=== PATIENT | male | born 1930 | race Caucasian/White ===

== ENCOUNTER 2018-02-01 08:57 | Inpatient (IN) | payer OTHER, MEDICARE ==
[~2018-02-01] VITALS: Ht 180.3 cm; Wt 69.5 kg
[2018-02-01 09:20] LABS: ABSOLUTE BASOPHIL COUNT 0 /CUMM (0.0-0.2); ABSOLUTE EOSINOPHIL COUNT 0.3 /CUMM (0.0-0.7); ABSOLUTE GRANULOCYTE CT 5.2 /CUMM (1.4-6.5); ABSOLUTE LYMPH COUNT 0.8 /CUMM (1.2-3.4); ABSOLUTE MONOCYTE COUNT 0.7 /CUMM (0.10-0.60); BASOPHIL % 0.3 % (0.0-2.0); EOSINOPHIL % 3.7 % (0-5); HEMATOCRIT 39.2 % (42-52); MEAN CORPUSCULAR HGB 30.5 PG (27.0-31.0); MEAN CORPUSCULAR HGB CONC 32.3 G/DL (33.0-37.0); MEAN CORPUSCULAR VOLUME 94.4 FL (80.0-94.0); MEAN PLATELET VOLUME 7.4 FL (7.4-10.4); PLATELET COUNT 230 /CUMM (130-400); RBC DISTRIBUTION WIDTH 13.9 % (11.5-14.5); RED BLOOD CELL CT 4.16 /CUMM (4.70-6.10); WHITE BLOOD CELL COUNT 7.1 /CUMM (4.8-10.8)
--- NOTE | 2018-02-01 09:42 | ED AMS/SEIZURE/WEAK/DIZZY ---
History of Present Illness General Chief Complaint: Dizziness Stated Complaint: DIZZNESS Source: patient, family, old records, EMS Exam Limitations: poor historian Vital Signs & Intake/Output Vital Signs & Intake/Output Vital Signs Date Time Temp Pulse Resp B/P B/P Pulse O2 O2 Flow FiO2 Mean Ox Delivery Rate 02/01 1249 65 18 163/83 95 Room Air 02/01 1110 98.6 54 18 159/70 98 Room Air 02/01 1051 97.0 51 18 159/70 97 Room Air 02/01 0950 98 Room Air 02/01 0906 96.8 63 18 187/79 98 Room Air Allergies Coded Allergies: No Known Allergies (02/01/18) Reconcile Medications Allopurinol 300 MG TABLET 1 TAB PO DAILY PRN GOUT (Reported) Brimonidine Tartrate/Timolol (Combigan Eye Drops) 0.2 %-0.5 % DROPS 1 DROP OPH BID EYE PROBLEMS (Reported) Clopidogrel Bisulfate (Clopidogrel) 75 MG TABLET 1 TAB PO DAILY BLOOD THINNER (Reported) [COVERSYL] 5 MG TAB 0.5 TAB PO DAILY HEART (Reported) Dorzolamide HCl/Timolol Maleat (Cosopt Eye Drops) 22.3 MG-6.8 MG/ML DROPS 1 GTT OPH BID GLAUCOMA (Reported) Perindopril Erbumine 4 MG TABLET 1 TAB PO DAILY PRN UNKNOWN (Reported) Travoprost (Travatan Z) 0.004 % DROPS 1 GTT OPH QPM GLAUCOMA (Reported) Triage Note: 87 YO MALE BIBA FROM HOME FOR C/O DIZZINESS. PT REPORTS DIZZINESS HAS BEEN GOING ON SINCE YESTERDAY. DENIES PAIN OTHER THEN CHROINC PAIN IN R KNEE (PTS R KNEE CAP WAS BLOWN OUT DURING WW2) PT ARRIVES A&O X3. DAUGHTER AT BEDSIDE, DAUGHTER REPORTS PT HAD AN EPISODE THIS AM WHERE HE WAS WALKING WITH HIS WALKER TO THE BATHROOM AND "HE JUST STOOD THERE AND DIDNT KNOW WHERE HE WAS" "HE WAS MARCHING IN PLACE BUT NOT WALKING ANYWHERE" BS FOR EMS WAS 126. Triage Nurses Notes Reviewed? yes Onset: yesterday Duration: day(s):, gone now Timing: recent history Injury Environment: home Severity: moderate, severe Modifying Factors: Improves With: rest. Worsens With: movement. HPI: 1 day prior to admission patient complained of episodes of dizziness. Prior to admission while attempting to walk with his walker to the bathroom and had extreme dizziness headache became confused unable to ambulate. In the emergency department the dizziness is improved without headache. He denies fever chills nausea vomiting diarrhea abdominal pain chest pain shortness of breath dysuria rash bleeding falls. Past History Travel History Traveled to [place] past 21 day No Medical History Any Pertinent Medical History? 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 No Review of Systems Review of Systems Constitutional: Reports: no symptoms. EENTM: Reports: no symptoms. Respiratory: Reports: no symptoms. Cardiovascular: Reports: no symptoms. GI: Reports: no symptoms. Genitourinary: Reports: no symptoms. Musculoskeletal: Reports: no symptoms. Skin: Reports: no symptoms. Neurological/Psychological: Reports: see HPI, cognitive dysfunction, headache, weakness. Hematologic/Endocrine: Reports: no symptoms. Immunologic/Allergic: Reports: no symptoms. All Other Systems: Reviewed and Negative Physical Exam Physical Exam General Appearance: well developed/nourished, alert, awake, comfortable, thin Head: atraumatic, normal appearance Eyes: Bilateral: normal appearance, PERRL, EOMI, other (nystagmus). Ears, Nose, Throat: normal pharynx, normal ENT inspection, hard of hearing with bilateral hearing aids Neck: normal inspection, supple, full range of motion, no midline tenderness Respiratory: normal breath sounds, chest non-tender, no respiratory distress, quiet respiration, lungs clear Cardiovascular: regular rate/rhythm, normal peripheral pulses, norml femoral pulses equa Peripheral Pulses: 4+ carotid (R), 4+ carotid (L) Gastrointestinal: normal bowel sounds, soft, non-tender, no organomegaly Back: normal inspection, normal range of motion, no vertebral tenderness Extremities: normal range of motion, no ligament instability Neurologic/Psych: no motor/sensory deficits, awake, alert, normal mood/affect, 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 Skin: intact, normal color, warm/dry Lymphatic: no anterior cervical nelida Core Measures ACS in differential dx? No CVA/TIA Diagnosis No Sepsis Present: No Sepsis Focused Exam Completed? No Progress Differential Diagnosis: benign positional vertigo, CVA/stroke, electrolyte imbalance, hypoxia, intracranial Hem., vertebrobasilar insuff Plan of Care: Orders Procedure Date/time Status CBC WITHOUT DIFFERENTIAL 02/02 0600 Active BASIC ELECTROLYTES PLUS BUN&CR 02/02 0600 Active Regular Diet 02/01 L Complete Regular Diet 02/01 D Active EKG 02/01 1500 Active PT Evaluate & Treat 02/01 1230 Active Saline Lock 02/01 1230 Active Pathway - chart 02/01 1230 Active House Staff 02/01 1230 Active CASE MANAGEMENT CONSULT 02/01 1230 Active Patient Data 02/01 1147 Active URINALYSIS 02/01 1121 Complete OXYGEN SETUP (GEN) 02/01 1051 Active Saline Lock 02/01 1051 Active Admit to inpatient 02/01 1051 Active Vital Signs 02/01 1051 Active Activity/Ambulation 02/01 1051 Active Code Status 02/01 1051 Active FingerStick- Glucose 02/01 0926 Active Intake & Output 02/01 0917 Active TROPONIN LEVEL 02/01 0912 Complete COMPREHENSIVE METABOLIC PANEL 02/01 0912 Complete CBC WITHOUT DIFFERENTIAL 02/01 0912 Complete EKG 02/01 0858 Active VTE Mechanical Prophylaxis 02/01 UNK Active Current Medications Sig/Kit Start time Last Medication Dose Stop Time Status Admin Enoxaparin Sodium 40 MG DAILY 02/02 1000 AC (Lovenox) Multivitamins 1 TAB DAILY 02/02 1000 AC (Theragran Vitamins) Acetaminophen 650 MG Q6PRN PRN 02/01 1230 AC (Tylenol) Laboratory Tests 02/01/18 1123: Urine Color YEL, Urine Clarity CLEAR, Urine pH 6.0, Ur Specific [place] 1.010, Urine Protein NEG, Urine Ketones NEG, Urine Nitrite NEG, Urine Bilirubin NEG, Urine Urobilinogen 0.2, Ur Leukocyte Esterase TRACE H, Ur Microscopic SEDIMENT EXAMINED, Urine RBC RARE, Urine WBC 1-3 H, Ur Epithelial Cells FEW, Urine Bacteria FEW H, Urine Hemoglobin NEG, Urine Glucose NEG 02/01/18 0910: Anion Gap 11, Estimated GFR > 60, BUN/Creatinine Ratio 22.9, Glucose 110 H, Calcium 9.1, Total Bilirubin 0.4, AST 16 L, ALT 23, Alkaline Phosphatase 45, Troponin I < 0.01, Total Protein 7.0, Albumin 3.8, Globulin 3.2, Albumin/ Globulin Ratio 1.2, CBC w Diff NO MAN DIFF REQ, RBC 4.16 L, MCV 94.4 H, MCH 30.5, MCHC 32.3 L, RDW 13.9, MPV 7.4, Gran % 74.0, Lymphocytes % 11.4 L, Monocytes % 10.6 H, Eosinophils % 3.7, Basophils % 0.3, Absolute Granulocytes 5.2, Absolute Lymphocytes 0.8 L, Absolute Monocytes 0.7 H, Absolute Eosinophils 0.3, Absolute Basophils 0 Diagnostic Imaging: Viewed by Me: CT Scan. Discussed w/RAD: CT Scan. Radiology Impression: No acute intracranial pathology. Probable old lacunar infarct right inferior basal ganglia. Small vessel ischemic disease. Initial ED EKG: rhythm (junctional rhythm), LBBB Rhythm Strip: normal sinus rhythm Comments: Unable to safely ambulate with walker and assist of 2. Departure Departure Time of Disposition: 1052 Disposition: STILL A PATIENT Condition: Stable Clinical Impression Primary Impression: Multifactorial gait disorder Secondary Impressions: Dizziness Departure Forms: Customer Survey General Discharge Information Admission Note Spoke With: Александр SPRINGER,Shona Documentation of Exam: Documentation of any treatments & extenuating circumstances including Concerns Regarding Discharge (functional status, medication knowledge or non-compliance, living conditions, etc.) that warrant an admission rather than observation: Medications for dizziness MRI physical therapy medication adjustment neurology evaluation ensure safety continuing care discharge planning
[2018-02-01] MEDS ORDERED: CLOPIDOGREL75 M1 PO (10:01)
[2018-02-01] MEDS ORDERED: ALLOPURINOL300 M1 PO (10:02)
[2018-02-01] MEDS ORDERED: [UNRECOGNIZED DRUG - OTHER] PO (10:02)
[2018-02-01] MEDS ORDERED: COSOPT EYE DROP10 ML OPH (10:03)
[2018-02-01] MEDS ORDERED: COVERSYL PO (10:03)
[2018-02-01] MEDS ORDERED: TRAVATAN Z5 ML OPH (10:04)
[2018-02-01] MEDS ORDERED: COMBIGAN EYE DRO5 ML OPH (10:04)
--- NOTE | 2018-02-01 10:15 | CT SCAN REPORT ---
EXAMINATION: CT HEAD WITHOUT CONTRAST CLINICAL INFORMATION: Dizziness and headaches COMPARISON: None TECHNIQUE: Contiguous axial imaging was performed from the skull base to vertex without intravenous administration of contrast. DLP: 624.7 mGy-cm FINDINGS: There is no evidence of acute intra-axial or extra-axial hemorrhage. No acute mass effect or midline shift. Prominence of the ventricles and sulci compatible with age related involutional changes. Focal hypodensity right inferior basal ganglia may represent age indeterminate lacunar infarct. No acute loss of ibarra-white differentiation. Mild periventricular white matter low-attenuation compatible with small vessel ischemic disease. The mastoid air cells and visualized portions of the paranasal sinuses are well aerated. IMPRESSION: No acute intracranial pathology. Probable old lacunar infarct right inferior basal ganglia. Small vessel ischemic disease.
--- NOTE | 2018-02-01 12:24 | History & Physical ---
Nae Tao 02/01/18 1224: General Information and HPI MD Statement: I have seen and personally examined MIGUEL CANCHOLA and documented this H& P. The patient is a 87 year old M who presented with a patient stated chief complaint of [dizziness]. Source of Information: patient, family Exam Limitations: no limitations History of Present Illness: Mr. Canchola is an 87 yo man with PMHx. significant for coronary artery disease, gout, glaucoma, hypertension, TIA about 5 years ago, vitamin B12 deficiency, TBI, brought in to emergency department by his daughter with a chief complaint of dizziness/confusion for [address] from [facility] he speak minimal Peruvian, most of the history obtained from his daughter was at bedside during the encounter. Per daughter she noticed that her father is confused today, he thought the table was his walker, he complained of dizziness, and he felt his head very heavy, no fall or loss of consciousness was reported. earlier today he thought he was walking while he was moving his feet in the same place, patient complained of excessive coldness of his left upper and lower extremities, he mentioned that he feels his arm and leg or freezing overnight and today in the morning, he reported that he didn't feel the plantar aspect of his left foot, with no weakness, numbness, loss of sensation other than the planter aspect of left foot reported. According to the daughter patient has been eating and drinking fine until today in the morning when he started to feel dizzy and he was confused. Patient denies any headache, chest pain, recent vision changes, shortness of breath, palpitation, ear pain, tinnitus, nausea, vomiting, and there is no change in his urinary or bowel habits. Of note: Patient uses a walker for ambulation since 5 years ago secondary to right knee injury at world war [place]. He lives with his daughter, he is dependent on his ADLs, IADLs Allergies/Medications Allergies: Coded Allergies: No Known Allergies (02/01/18) Home Med list Allopurinol 300 MG TABLET 1 TAB PO DAILY PRN GOUT (Reported) Brimonidine Tartrate/Timolol (Combigan Eye Drops) 0.2 %-0.5 % DROPS 1 DROP OPH BID EYE PROBLEMS (Reported) Clopidogrel Bisulfate (Clopidogrel) 75 MG TABLET 1 TAB PO DAILY BLOOD THINNER (Reported) Dorzolamide HCl/Timolol Maleat (Cosopt Eye Drops) 22.3 MG-6.8 MG/ML DROPS 1 GTT OPH BID GLAUCOMA (Reported) Perindopril Erbumine 4 MG TABLET 1 TAB PO DAILY PRN UNKNOWN (Reported) Travoprost (Travatan Z) 0.004 % DROPS 1 GTT OPH QPM GLAUCOMA (Reported) Compliance With Home Meds: GOOD Past History Travel History Traveled to [place] past 21 day No Medical History Neurological: TIA, TBI EENT: glaucoma Cardiovascular: CLOGGED ARTERY Respiratory: NONE Gastrointestinal: NONE Hepatic: NONE Renal: NONE Musculoskeletal: NONE Psychiatric: NONE Endocrine: NONE Blood Disorders: NONE Cancer(s): NONE 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 EENTM: Denies: ear discharge, ear pain, ear redness. Cardiovascular: Reports: no symptoms. Respiratory: Reports: no symptoms. GI: Reports: no symptoms. Genitourinary: Reports: no symptoms. Musculoskeletal: Reports: no symptoms, joint pain. Skin: Reports: no symptoms. Neurological/Psychological: Reports: see HPI, confusion. Hematologic/Endocrine: Reports: no symptoms. Immunologic/Allergic: Reports: no symptoms. All Other Systems: Reviewed and Negative Exam & Diagnostic Data Last 24 Hrs of Vital Signs/I&O Vital Signs Date Time Temp Pulse Resp B/P B/P Pulse O2 O2 Flow FiO2 Mean Ox Delivery Rate 02/01 1249 65 18 163/83 95 Room Air 02/01 1110 98.6 54 18 159/70 98 Room Air 02/01 1051 97.0 51 18 159/70 97 Room Air 02/01 0950 98 Room Air 02/01 0906 96.8 63 18 187/79 98 Room Air Intake & Output 02/01 1600 02/01 0800 02/01 0000 Intake Total 0 Output Total 420 Balance -420 Intake, Oral 0 Output, Urine 420 Patient 150 lb Weight Weight Reported by Patient Measurement Method Physical Exam General Appearance Alert, Cooperative, No Acute Distress Skin No Rashes, No Breakdown, No Significant Lesion Skin Temp/Moisture Exam: Warm/Dry Sepsis Skin Exam (color): Normal for Ethnicity HEENT Atraumatic, PERRLA, EOMI, Mucous Membr. moist/pink, No nystagmus appreciated Neck Supple, No JVD, No thryomegaly, +2 Carotid Pulse wo Bruit Lymphatic Axillary nl, Cervical nl Cardiovascular Regular Rate, Normal S1, Normal S2, No Murmurs Lungs Clear to Auscultation, Normal Air Movement Abdomen Normal Bowel Sounds, Soft, No Tenderness Neurological Normal Speech, Normal Tone, Sensation Intact, Cranial Nerves 3-12 NL, Stength at 5/5 on all extrimities except for right LE 3/5 2/2 knee injury Extremities No Clubbing, No Cyanosis, No Edema, Normal Pulses, No Tenderness/ Swelling Vascular Normal Pulses, Pulses Symmetrical Last 24 Hrs of Labs/Romero: Laboratory Tests 02/01/18 1123: Urine Color YEL, Urine Clarity CLEAR, Urine pH 6.0, Ur Specific [place] 1.010, Urine Protein NEG, Urine Ketones NEG, Urine Nitrite NEG, Urine Bilirubin NEG, Urine Urobilinogen 0.2, Ur Leukocyte Esterase TRACE H, Ur Microscopic SEDIMENT EXAMINED, Urine RBC RARE, Urine WBC 1-3 H, Ur Epithelial Cells FEW, Urine Bacteria FEW H, Urine Hemoglobin NEG, Urine Glucose NEG 02/01/18 0910: Anion Gap 11, Estimated GFR > 60, BUN/Creatinine Ratio 22.9, Glucose 110 H, Calcium 9.1, Total Bilirubin 0.4, AST 16 L, ALT 23, Alkaline Phosphatase 45, Troponin I < 0.01, Total Protein 7.0, Albumin 3.8, Globulin 3.2, Albumin/ Globulin Ratio 1.2, CBC w Diff NO MAN DIFF REQ, RBC 4.16 L, MCV 94.4 H, MCH 30.5, MCHC 32.3 L, RDW 13.9, MPV 7.4, Gran % 74.0, Lymphocytes % 11.4 L, Monocytes % 10.6 H, Eosinophils % 3.7, Basophils % 0.3, Absolute Granulocytes 5.2, Absolute Lymphocytes 0.8 L, Absolute Monocytes 0.7 H, Absolute Eosinophils 0.3, Absolute Basophils 0 Diagnostic Data EKG Results Sinus rhythm, LBBB, 1st degree AV block no acute ST/T-wave changes QTC 410 CXR Results IMPRESSION: No acute intracranial pathology. Probable old lacunar infarct right inferior basal ganglia. Small vessel ischemic disease. Other Results CT head: IMPRESSION: No acute intracranial pathology. Probable old lacunar infarct right inferior basal ganglia. Small vessel ischemic disease. Assessment/Plan Assessment: Mr. Canchola is an 87 yo man who is born with one kidney with PMHx. significant for coronary artery disease, gout, glaucoma, hypertension, TIA about 5 years ago , vitamin B12 deficiency, TBI, brought in to emergency department by his daughter with a chief complaint of dizziness/confusion for 1 day admitted to telemetry floor for intractable dizziness, confusion, to rule out TIA/stroke Vitals, examination, labs and imaging as above ABCD score: 2 (age >65 and BP>140/90 mmgh) #Assessment: * Dizziness: Could be related to new neurological event VS orthostatic hypotension * Confusion: Could be Related to mild cognitive impairment given his age VS dementia (given TBI history) but also serious etiology such as new onset TIA/ stroke needs to rule out * Coldness of left upper and lower extremities with intact pulse and normal neurologic exam * History of CAD currently on Plavix * History of TIA about 5 years ago with no residual deficits * Right knee injury/ dependent on a walker * History of vitamin B12 deficiency * Macrocytic anemia * History of gout/ Hypertension * History of glaucoma * Single kidney #Plan: * We'll admit the patient to telemetry floor for 24-hour monitoring to rule out any arrhythmia * He had a CAT scan at the emergency department which showed no acute intracranial pathology, possible old lacunar infarct in the right inferior basal ganglia. Small vessel ischemic disease. Will check head MRI * Will discuss the need for neurological evaluation with the attending and after the MRI result * Will order carotid ultrasound * Will hold on statin for now given his age, as statin had shown to increase risk of dementia in this age group, and it is not recommended to decrease ASCVD risk * We'll continue his home dose of Plavix * We'll discuss with attending the need for aspirin * Will check echocardiogram * We'll continue his eyedrops for glaucoma * Will hold LACIE inhibitor for today, resume from tomorrow if MRI is negative and remains stable * On examination patient didn't have any bilateral lower extremity swelling, sensation was intact on bilateral lower extremity, sensation in the plantar aspects of his feet was also intact, pulse was also appreciated in bilateral lower extremity, however I will order left lower extremity arterial Doppler to rule out any PVD as his left LE was noted to be cold * Check orthostat * PT evaluation * Will check vit B12 level * Would repeat one more set of EKG and troponin to rule him out for ACS even though he didn't complain of any chest pain DVT prophylaxis with SC Lovenox He is full code As Ranked By This Provider Problem List: 1. Dizziness 2. Multifactorial gait disorder Core Measures/Misc (07/19) Acute Coronary Syndrome ACS Diagnosis: No Congestive Heart Failure Congestive Heart Failure Diagnosis No Cerebrovascular Accident CVA/TIA Diagnosis: No VTE (View Protocol) VTE Risk Factors Age>40 No Mechanical VTE Prophylaxis d/t N/A MechProphylax Ordered No VTE Pharm Prophylaxis d/t NA PharmProphylax ordered Sepsis (View protocol) Sepsis Present: No Reji Gee 02/01/182047: Attending MD Review Statement Attending Statement Attending MD Statement: discuss w/resident/PA/DIRECTOR SHIP, agreed w/resident/PA/DIRECTOR SHIP, discussed with family, reviewed EMR data (avail), discussed with case mgmt Attending Assessment/Plan: 87 yo man with PMHx. significant for coronary artery disease, gout, glaucoma, hypertension, TIA about 5 years ago, vitamin B12 deficiency, TBI, brought in to emergency department by his daughter with a chief complaint of dizziness/ confusion for [address] head done shows-"No acute intracranial pathology.Probable old lacunar infarct right inferior basal ganglia. Small vessel ischemic disease." MRI brain showed no acute intracranial pathology and some volume loss. His confusion could be multifactorial. ? TIA vs Dementia vs encephalopathy- his Imaging studies do not support stroke. More likely dementia with some pscyhosis features is possible. Will see if his mental status improves. We have ordered some test -will f/u on that. We will send for lyme and vdrl as well. Will get PT /OT consult in am. d/w pts family at bedside the care plan.
[2018-02-01 14:27] VITALS: BP 142/60
--- NOTE | 2018-02-01 16:57 | MRI REPORT ---
EXAMINATION: MR BRAIN WITHOUT CONTRAST CLINICAL INFORMATION: 87-year-old man with dizziness and confusion. COMPARISON: head CT TECHNIQUE: MRI of the brain without contrast was obtained using routine sequences. FINDINGS: The ventricles and sulcal spaces are diffusely prominent due to chronic volume loss. No focal reduced diffusion is seen to suggest acute or subacute cerebral ischemia. No intracranial mass, intracerebral edema, intra-axial blood products, midline shift, or extra-axial collection is visualized. Normal arterial and venous vascular flow voids are present. There is mild mucosal thickening in the ethmoid air cells. IMPRESSION: No imaging evidence of acute cerebral ischemia or hemorrhage. Chronic volume loss.
--- NOTE | 2018-02-01 18:06 | ULTRASOUND REPORT ---
EXAMINATION: US DUPLEX CAROTID AND VERTEBRAL CLINICAL INFORMATION: Dizziness, unsteady gait. COMPARISON: CT brain 02/01/2018 and MRI brain 02/19/2018 TECHNIQUE: Real-time ultrasound and Doppler techniques (integrating B-mode 2D vascular images, Doppler spectral analysis and color flow Doppler imaging) were utilized to interrogate the extracranial carotid and vertebral arteries bilaterally. The degree of stenosis determined by criteria similar to NASCET. FINDINGS: There is soft atherosclerotic plaque bilateral proximal common carotid artery greater on the right. On the right peak systolic/end diastolic velocity distal CCA measures 113/22 cm/second. Peak systolic/end-diastolic velocity right proximal ICA measures 105/18 cm/second. There is no significant stenosis. On the left peak systolic/end diastolic velocity left distal CCA measures 97/17 cm/second. Peak systolic/end diastolic velocity left proximal IC measures 79/20 3 cm/second. There is no significant stenosis. Normal antegrade flow seen in both vertebral arteries. IMPRESSION: Soft atherosclerotic plaque seen in both carotid bulbs. No hemodynamically significant stenosis in either carotid artery. Normal antegrade flow seen in both vertebral arteries
--- NOTE | 2018-02-01 18:32 | RADIOLOGY REPORT ---
EXAMINATION: XR PORTABLE CHEST CLINICAL INFORMATION: Dizziness. COMPARISON: None TECHNIQUE: Portable frontal view of the chest was obtained. FINDINGS: Both lungs are well-expanded with increased fine interstitial markings likely chronic changes. No focal consolidation seen to suggest any new infiltrate. No pleural effusion noted. Heart size and pulmonary vascularity is normal. No gross bony abnormality seen. IMPRESSION: Increased interstitial markings suggestive of chronic changes. No acute cardio pulmonary process seen.
--- NOTE | 2018-02-01 19:32 | ULTRASOUND REPORT ---
EXAMINATION: US LOWER EXTREMITY ARTERIAL DOPPLER, BILATERAL CLINICAL INFORMATION: Cold extremity. Unsteady gait. COMPARISON: None TECHNIQUE: Sonographic imaging of major vessels of each lower extremity was performed using a linear 9 MHz transducer. Grayscale imaging, pulsed color Doppler imaging and spectral waveform analysis was performed. FINDINGS: RIGHT SIDE: Common femoral artery, triphasic waveform, peak velocity of 138 cm/sec. Profunda femoris artery, biphasic waveform, peak velocity of 107 cm/sec. Proximal SFA, triphasic waveform, peak velocity of 86 cm/sec. Mid SFA, triphasic waveform, peak velocity of 86 cm/sec. Distal SFA, triphasic waveform, peak velocity of 135 cm/sec. Atherosclerotic plaque produces mild luminal stenosis within the distal SFA. Popliteal artery, biphasic waveforms, peak velocity of 49 cm/sec, proximally and 54 cm/sec, distally. Proximal and mid posterior tibial artery, biphasic waveforms, peak velocity of 50 cm/sec and 78 cm/sec, respectively. Distal posterior tibial artery, triphasic waveform, peak velocity of 95 cm/sec. Proximal peroneal artery, biphasic waveform, peak velocity of 72 cm/sec. Mid peroneal artery, biphasic waveform, peak velocity of 79 cm/sec. The distal peroneal artery has a biphasic waveform, peak velocity of 69 cm/sec. Anterior tibial artery, biphasic waveform, peak velocities of 73, 88 and 66 cm/sec in the proximal, mid and distal leg, respectively. Dorsalis pedis artery, biphasic waveform, peak velocity of 40 cm/sec. LEFT SIDE: Common femoral artery, triphasic waveform, peak velocity of 147 cm/sec. Profunda femoris artery, biphasic waveform, peak velocity of 70 cm/sec. SFA, triphasic waveforms, peak velocities of 109, 90 and 72 cm/sec within the proximal, mid and distal thigh, respectively. Popliteal artery, biphasic waveforms, peak velocity of 70 cm/sec, proximally and 72 cm/sec, distally. Posterior tibial artery is not visualized, presumably from severe disease or occlusion. Proximal peroneal artery is not visualized. Mid and distal peroneal artery have biphasic waveforms, peak velocities of 52 cm/sec and 54 cm/sec, respectively. Anterior tibial artery, biphasic waveforms, peak velocities of 83, 91 and 64 cm/sec within the proximal, mid and distal leg, respectively. Dorsalis pedis artery, biphasic waveform, peak velocity of 82 cm/sec. IMPRESSION: - On this Doppler ultrasound examination, the visualized major vessels of the right lower extremity are patent. Mild luminal stenosis of the distal right SFA is observed. - Within the left leg, the posterior tibial artery is not visualized, presumably from severe disease or vessel occlusion. Also, the proximal segment of the peroneal artery is not visualized. - The presence of biphasic waveforms within the vessels of both lower extremities indicates presence of peripheral vascular disease. For a more complete anatomic assessment of the peripheral vessels, CT angiography-runoff examination could be performed. To further evaluate the severity of peripheral vascular disease, CHRISTINA measurements and pulse volume recordings may be obtained at a dedicated vascular lab.
--- NOTE | 2018-02-01 20:51 | Admission Certification ---
Admission Certification Certification Statement - As attending physician, I certify that at the time of - admission, based on clinical presentation, severity of - symptoms, need for further diagnostic testing and - therapeutic interventions, and risk of adverse outcomes - without in-hospital treatment, in my clinical assessment, - this patient requires an acute hospital stay for a minimum - of two nights or longer. I have also considered psychsocial - factors such as support system, advanced age, financial - issues, cognitive issues, and failed out-patient treatments, - past re-admission history, safety of patient, and lack of - compliance as applicable. Specific rationale supporting this admission is: ? stroke/ delerium
[2018-02-01 22:32] VITALS: BP 112/54
[2018-02-02 06:49] VITALS: BP 118/56
--- NOTE | 2018-02-02 07:02 | PN- Housestaff ---
YuanDivide 02/02/18 0702: Subjective Follow-up For: Gait instability Dizziness Tele-Events Since Last Visit: Sinus rhythm with heart rate 4053 Subjective: No overnight events. Patient remained afebrile overnight. Seen and examined this morning. He denied any chest pain, short of breath, nausea, vomiting. Complaining of weakness Review of Systems Constitutional: Reports: weakness. EENTM: Reports: no symptoms. Cardiovascular: Reports: no symptoms. Respiratory: Reports: no symptoms. Gastrointestinal: Reports: no symptoms. Genitourinary: Reports: no symptoms. Musculoskeletal: Reports: see HPI. Neurological/Psychological: Reports: see HPI. Objective Last 24 Hrs of Vital Signs/I&O Vital Signs Date Time Temp Pulse Resp B/P B/P Pulse O2 O2 Flow FiO2 Mean Ox Delivery Rate 02/02 0649 98.4 47 18 118/56 97 Room Air 02/01 2236 Room Air 02/01 2232 98.6 53 18 112/54 96 Room Air 02/01 1427 98.0 60 18 142/60 96 02/01 1400 Room Air Intake & Output 02/02 1600 02/02 0800 02/02 0000 Intake Total 50 240 Output Total 300 675 Balance -250 -435 Intake, Oral 50 240 Output, Urine 300 675 Patient 159 lb Weight Weight Bed scale Measurement Method Physical Exam General Appearance: Alert, Oriented X3, Cooperative Skin: No Rashes Skin Temp/Moisture Exam: Warm/Dry Sepsis Skin Exam (color): Normal for Ethnicity HEENT: Atraumatic, PERRLA, EOMI Neck: Supple Cardiovascular: Normal S1, Normal S2 Lungs: Clear to Auscultation Abdomen: Soft, No Tenderness Neurological: Normal Speech, Normal Tone Extremities: No Edema Assessment/Plan Assessment: 87M PMH coronary artery disease, gout, glaucoma, hypertension, TIA about 5 years ago , vitamin B12 deficiency admitted with dizziness, headache, loss of balance, and confusion for one day. No family was at bedside this morning. Keeping the patient on telemetry floor for the following problems: Dizziness: -Ruled out TIA, on splitting machine operator helper there is no arrhythmia. -Probably due to generalized weakness and dehydration. -PT evaluation -Encourage more oral intake -Can be trasfered to general med floor. Gait instability: -We will get PT evaluation -Neurological evaluation for possible parkinsonism as outpatient. History Of hypertension: -Continue home medications Coronary artery disease: -Continue aspirin and rest of his home medication. DVT prophylaxis: Mechanical and subcutaneous Lovenox CODE STATUS; Full code Problem List: 1. Dizziness 2. Multifactorial gait disorder Pain Ratin Pain Location: none Pain Goal: Remain pain free Pain Plan: pain pathway Tomorrow's Labs & Rationales: none Jean Paul SPRINGEREdil 02/02/18 1048: Attending MD Review Statement Attending Statement Attending MD Statement: examined this patient, discuss w/resident/PA/BODY SHOP MANAGER, agreed w/resident/PA/BODY SHOP MANAGER, reviewed EMR data (avail) Attending Assessment/Plan: 87M PMH coronary artery disease, gout, glaucoma, hypertension, TIA about 5 years ago , vitamin B12 deficiency admitted with dizziness, headache, loss of balance, and confusion for one day. No family was at bedside this morning. Patient feels well and has no complaints this morning. He reports having a frontal headache yesterday with some dizziness but this has passed. He is A&Ox3, knows why he is in the hospital, and understands his treatment plan. He walks with a cane at home but sometimes requires some assistance. Neuro exam is normal. CT and MRI head normal. 1. Headache 2. Dizziness 3. Gait instability Plan - May transfer to general medicine floor, as low suspicion for CVA and no arrythmias overnight - Continue ASA - Continue home medications - Neurology evaluation for possible Parkinsonianism - DVT PPx - PT evaluation for discharge planning - Follow up on B12 level, TSH, Vitamin D - No labs tomorrow
--- NOTE | 2018-02-02 07:45 | ECHOCARDIOGRAM REPORT ---
MIGUEL OLIVERA Age: 87 : 1930 Gender: M Exam Date: 02/01/2018 18:52 Exam Location: 1 [address] Ht (in): 71 Wt (lb): 160 BSA: 1.91 BP: 142 / 60 Ordering Physician: Nae Tobias MD Referring Physician: Nae Tobias MD Technologist: Roz Talley [facility] Room Number: [id number] Indications: HYPERTENSION Rhythm: Sinus Technical Quality: good FINDINGS Left Ventricle Normal left ventricular size, wall thickness and systolic function with no obvious regional wall motion abnormalities. Diastolic filling pattern is consistent with impaired LV relaxation. The ejection fraction is visually estimated at 60%. Right Ventricle The right ventricle is normal in size and function. Right Atrium The right atrium is normal in size. Left Atrium The left atrium is moderately enlarged. The interatrial septum is intact. Mitral Valve The mitral valve is normal in structure and function. There is mild mitral regurgitation. Aortic Valve Mildly sclerotic aortic valve without significant stenosis. There is mild to moderate aortic regurgitation. Tricuspid Valve The tricuspid valve is normal in structure and function. There is mild tricuspid regurgitation. Pulmonary artery systolic pressure is normal. Pulmonic Valve Structurally normal pulmonic valve. There is mild pulmonic regurgitation. Pericardium Normal pericardium without effusion. No pleural effusion. Great Vessels Normal aortic root dimension. The aortic arch and great vessels are well seen and are normal. CONCLUSIONS 1. Normal EF of 60% with impaired LV relaxation. 2. Moderate left atrial enlargement. 3. Mild mitral regurgitation. 4. Mild tricuspid regurgitation. 5. Mild to moderate aortic regurgitation. 6. Mild pulmonic regurgitation. Ronald Pizano M.D. (Electronically Signed) Final Date: 02 February 2018 07:44 MEASUREMENTS (Male / Female) Normal Values 2D ECHO LV Diastolic Diameter PLAX 5.2 cm 4.2 - 5.9 / 3.9 - 5.3 cm LV Systolic Diameter PLAX 3.0 cm 2.1 - 4.0 cm LV Fractional Shortening PLAX 42.3 % 25 - 46 % LV Ejection Fraction 2D Teich 73.0 % IVS Diastolic Thickness 1.0 cm LVPW Diastolic Thickness 1.1 cm LV Relative Wall Thickness 0.4 RV Internal Dim ED PLAX 3.0 cm 1.9 - 3.8 cm LVOT Diameter 2.2 cm Aortic Root Diameter 3.1 cm LA Systolic Diameter LX 4.9 cm 3.0 - 4.0 / 2.7 - 3.8 cm LA Volume 70.0 cm 18 - 58 / 22 - 52 cm Ascending Aorta Diameter 3.7 cm DOPPLER AV Peak Velocity 188.0 cm/s AV Peak Gradient 14.1 mmHg AV Mean Velocity 115.0 cm/s AV Mean Gradient 6.0 mmHg AV Velocity Time Integral 37.2 cm LVOT Peak Velocity 98.7 cm/s LVOT Peak Gradient 3.9 mmHg LVOT Mean Velocity 67.5 cm/s LVOT Mean Gradient 2.0 mmHg LVOT Velocity Time Integral 20.3 cm LVOT Stroke Volume 77.2 cm AV Area Cont Eq vti 2.1 cm AV Area Cont Eq pk 2.0 cm MV Peak Velocity 73.9 cm/s MV Peak Gradient 2.2 mmHg MV Mean Velocity 46.8 cm/s MV Mean Gradient 1.0 mmHg Mitral E Point Velocity 54.3 cm/s Mitral A Point Velocity 67.1 cm/s Mitral E to A Ratio 0.8 MV PHT Velocity 64.2 cm/s MV Deceleration Woodward 171.0 cm/s MV Pressure Half Time 112.6 ms MV Area PHT 2.0 cm MV Deceleration Time 357.0 ms TR Peak Velocity 187.0 cm/s TR Peak Gradient 14.0 mmHg Right Atrial Pressure 5.0 mmHg Pulmonary Artery Systolic Pressu 19.0 mmHg Right Ventricular Systolic Press 19.0 mmHg PV Peak Velocity 89.9 cm/s PV Peak Gradient 3.2 mmHg PV Mean Velocity 58.0 cm/s PV Mean Gradient 2.0 mmHg PV Velocity Time Integral 19.8 cm LV E' Lateral Velocity 11.0 cm/s Mitral E to LV E' Lateral Ratio 4.9 LV E' Septal Velocity 5.9 cm/s Mitral E to LV E' Septal Ratio 9.1
[2018-02-02 08:21] LABS: ABSOLUTE BASOPHIL COUNT 0 /CUMM (0.0-0.2); ABSOLUTE EOSINOPHIL COUNT 0.2 /CUMM (0.0-0.7); ABSOLUTE LYMPH COUNT 0.8 /CUMM (1.2-3.4); BASOPHIL % 0.6 % (0.0-2.0); GRANULOCYTE % 66.9 % (42.2-75.2)
[2018-02-02 08:56] LABS: ABSOLUTE GRANULOCYTE CT 3.6 /CUMM (1.4-6.5); ABSOLUTE MONOCYTE COUNT 0.7 /CUMM (0.10-0.60); EOSINOPHIL % 4.1 % (0-5); MEAN CORPUSCULAR HGB 31.3 PG (27.0-31.0); MEAN CORPUSCULAR HGB CONC 33.4 G/DL (33.0-37.0); MEAN CORPUSCULAR VOLUME 93.7 FL (80.0-94.0); MEAN PLATELET VOLUME 8.1 FL (7.4-10.4); PLATELET COUNT 170 /CUMM (130-400); RBC DISTRIBUTION WIDTH 13.3 % (11.5-14.5); RED BLOOD CELL CT 3.21 /CUMM (4.70-6.10); WHITE BLOOD CELL COUNT 5.3 /CUMM (4.8-10.8)
[2018-02-02 08:59] LABS: HEMATOCRIT 30.1 % (42-52)
[2018-02-02 14:31] VITALS: BP 108/58
[2018-02-02 23:51] VITALS: BP 112/50
[2018-02-03 06:36] VITALS: BP 120/70
--- NOTE | 2018-02-03 07:43 | PN- Housestaff ---
YuanDe La Cruz 02/03/18 0742: Subjective Follow-up For: Gait instability Vertigo Tele-Events Since Last Visit: Off telemetry Subjective: No overnight events. Patient remained afebrile overnight. Seen and examined this morning. Patient slept well last night. He denied any chest pain, short of breath, nausea, vomiting, chills, fever, abdominal pain and dysuria. Patient has language barrier he can't speak Danish well. Patient will see neurology for evaluation of Parkinson disease. Patient is off telemetry monitoring and can be transferred to general med.. Review of Systems Constitutional: Reports: see HPI. Objective Last 24 Hrs of Vital Signs/I&O Vital Signs Date Time Temp Pulse Resp B/P B/P Pulse O2 O2 Flow FiO2 Mean Ox Delivery Rate 02/03 0636 98.0 74 20 120/70 94 02/02 2351 97.7 52 16 112/50 97 Room Air 02/02 1509 Room Air 02/02 1503 Room Air 02/02 1431 97.7 48 18 108/58 97 Room Air Intake & Output 02/03 1600 02/03 0800 02/03 0000 Intake Total Output Total 550 100 Balance -550 -100 Output, Urine 550 100 Patient 159 lb Weight Physical Exam General Appearance: Alert, Oriented X3, Cooperative Skin: No Rashes Skin Temp/Moisture Exam: Warm/Dry Sepsis Skin Exam (color): Normal for Ethnicity HEENT: Atraumatic, PERRLA, EOMI Neck: Supple Cardiovascular: Normal S1, Normal S2 Lungs: Clear to Auscultation Abdomen: Soft, No Tenderness Neurological: Normal Speech, Normal Tone Extremities: No Edema Last 24 Hrs of Lab/Romero Results Last 24 Hrs of Labs/Mics: Laboratory Tests 02/03/18 0615: Sodium Pending, Potassium Pending, Chloride Pending, Carbon Dioxide Pending, Anion Gap Pending, BUN Pending, Creatinine Pending, BUN/Creatinine Ratio Pending 02/02/18 1355: Prot Electrophoresis Cancelled, Total Protein (PEP) Cancelled, Albumin % (PEP) Cancelled, Kforv-3-Dmqpkpudc Cancelled, Tzeto-3-Ugkizusqh Cancelled, Beta-1- Globulin Cancelled, Krgw-9-Appnfdos Cancelled, Gamma Globulins Cancelled, Abnorm Protein Band 1 Cancelled, Abnorm Protein Band 2 Cancelled, Abnorm Protein Band 3 Cancelled Assessment/Plan Assessment: 87M PMH coronary artery disease, gout, glaucoma, hypertension, TIA about 5 years ago , vitamin B12 deficiency admitted with dizziness, headache, loss of balance, and confusion for one day. No family was at bedside this morning. Keeping the patient on telemetry floor for the following problems: Vertigo: -Possibly peripheral vertigo that patient experienced in the past. -Ruled out TIA, on pain management nurse there is no arrhythmia. -PT evaluation -Can be trasfered to general med floor. Gait instability: -We will get PT evaluation -Neurological evaluation for possible parkinsonism. History Of hypertension: -Prindopril was stopped considering her dizziness. -His blood pressure is within normal limits. Coronary artery disease and TIA: -Continue clopidogrel. DVT prophylaxis: Mechanical and subcutaneous Lovenox CODE STATUS: Full code Problem List: 1. Dizziness 2. Multifactorial gait disorder Pain Ratin Pain Location: none Pain Goal: Remain pain free Pain Plan: pain pathway Tomorrow's Labs & Rationales: none Edil Reaves MD 02/03/18 1115: Attending MD Review Statement Attending Statement Attending MD Statement: examined this patient, discuss w/resident/PA/READING AIDE, agreed w/resident/PA/READING AIDE, reviewed EMR data (avail) Attending Assessment/Plan: 87M PMH coronary artery disease, gout, glaucoma, hypertension, TIA about 5 years ago , vitamin B12 deficiency admitted with dizziness, headache, loss of balance, and confusion for one day. No family was at bedside this morning. Patient feels well and has no complaints this morning. He reports having a frontal headache yesterday with some dizziness but this has passed. He is A&Ox3, knows why he is in the hospital, and understands his treatment plan. He walks with a cane at home but sometimes requires some assistance. Neuro exam is normal. CT and MRI head normal. No complaints today, doing well, no further dizziness. 1. Headache 2. Vertigo 3. Gait instability Plan - May transfer to general medicine floor, as low suspicion for CVA and no arrythmias overnight - Continue home medications - Neurology evaluation for possible Parkinsonianism - DVT PPx - Will work with PT today, if able to ambulate safely can be discharged home today, otherwise will discharge to [facility] tomorrow. Will need neurology consult before discharge.
--- NOTE | 2018-02-03 10:25 | Discharge Summary ---
Visit Information Visit Dates Admission Date: 02/01/18 Hospital Course Course Attending Physician: Edil Reaves MD Primary Care Physician: Joe SPRINGER,Antwon [facility] Course: 87M PMH coronary artery disease, gout, glaucoma, hypertension, TIA about 5 years ago , vitamin B12 deficiency admitted with dizziness, headache, loss of balance, and confusion for one day. No family was at bedside this morning. ED course: Vitals: Temperature 96.8, pulse 63, respiratory rate 18, blood pressure 187/79, oxygen saturation 98% on room air. Labs: WBC count 7.1, hemoglobin 12.7, hematocrit 39.2, platelet count 2:30, sodium 143, potassium 4.3, BUN 16, creatinine 0.7, calcium 9.1, glucose 110, BUNs/creatinine ratio 22.9, AST 16, ALT 23, alkaline phosphatase 45, troponin less than 0.01 Vertigo: Patient was admitted with dizziness possibly due to benign positional vertigo. Patient reported that the with her low comes and goes. It resolved by its own. Patient was instructed to follow with primary care physician for further evaluation. During the hospital stay TIA/CVA was ruled out as his Doppler study , CT scan and MRI were negative. Gait instability: Patient has gait instability probably due to his generalized weakness or early signs of parkinsonism. Neurology consult was obtained for evaluation of parkinsonism. PT evaluation was obtained and recommendations were followed. History Of hypertension: Perindopril was stopped during the hospital stay as he was complaining of vertigo and he was admitted. Over the discharge his medication was resumed and he was advised to see his primary care physician for further recommendations. Coronary artery disease and TIA: Continued clopidogrel and rest of his home medication. DVT prophylaxis: Mechanical and subcutaneous Lovenox CODE STATUS: Full code Allergies: Coded Allergies: No Known Allergies (02/01/18) Pertinent Lab Results: Carotid ultrasound on 02/01/18 IMPRESSION: Soft atherosclerotic plaque seen in both carotid bulbs. No hemodynamically significant stenosis in either carotid artery. Normal antegrade flow seen in both vertebral arteries Chest x-ray on 02/01/18 IMPRESSION: Increased interstitial markings suggestive of chronic changes. No acute cardio pulmonary process seen. Arterial Doppler study of lower extremity on 02/01/2018 ; IMPRESSION: - On this Doppler ultrasound examination, the visualized major vessels of the right lower extremity are patent. Mild luminal stenosis of the distal right SFA is observed. - Within the left leg, the posterior tibial artery is not visualized, presumably from severe disease or vessel occlusion. Also, the proximal segment of the peroneal artery is not visualized. - The presence of biphasic waveforms within the vessels of both lower extremities indicates presence of peripheral vascular disease. For a more complete anatomic assessment of the peripheral vessels, CT angiography-runoff examination could be performed. To further evaluate the severity of peripheral vascular disease, CHRISTINA measurements and pulse volume recordings may be obtained at a dedicated vascular lab. Head CT scan on 02/01/18 IMPRESSION: No acute intracranial pathology. Probable old lacunar infarct right inferior basal ganglia. Small vessel ischemic disease. Head MRI on 02/01/18: IMPRESSION: No imaging evidence of acute cerebral ischemia or hemorrhage. Chronic volume loss. Echocardiogram on 02/02/2018: CONCLUSIONS 1. Normal EF of 60% with impaired LV relaxation. 2. Moderate left atrial enlargement. 3. Mild mitral regurgitation. 4. Mild tricuspid regurgitation. 5. Mild to moderate aortic regurgitation. 6. Mild pulmonic regurgitation. WBC 5.3, hemoglobin 10.0, hematocrit 30.1, platelet count 170, sodium 143, potassium 4.3, BUN 15, creatinine 0.7, BUNs/creatinine ratio 21.4, troponin less than 0.01, 59, cholesterol 108, LDL 61, HDL 36, vitamin B12 370, vitamin D 12.8, Disposition Summary Disposition Principal Diagnosis: Vertigo Gait instability Additional Diagnosis: Hypertension CAD Gout Glaucoma Discharge Disposition: home health services Discharge Instructions General Discharge Information Code Status: Full Code Patient's Diet: Regular diet Patient's Activity: Self limited Follow-Up Instructions/Appts: Follow-up your primary care physician in one week. Follow-up with neurology in 1 week. Medications at Discharge Discharge Medications: Stop taking the following medications: [COVERSYL] 5 MG TAB ORAL DAILY Continue taking these medications: Clopidogrel Bisulfate (Clopidogrel) 75 MG TABLET 1 Tablet ORAL DAILY Qty = 30 Allopurinol (Allopurinol) 300 MG TABLET 1 Tablet ORAL DAILY as needed for GOUT Qty = 30 Dorzolamide HCl/Timolol Maleat (Cosopt Eye Drops) 22.3 MG-6.8 MG/ML DROPS 1 Drop In the eye TWICE DAILY Brimonidine Tartrate/Timolol (Combigan Eye Drops) 0.2 %-0.5 % DROPS 1 DROP In the eye TWICE DAILY Travoprost (Travatan Z) 0.004 % DROPS 1 Drop In the eye Every night The following medications have been changed: Old: Perindopril Erbumine (Perindopril Erbumine) 4 MG TABLET 1 Tablet ORAL DAILY Qty = 30 New: Perindopril Erbumine (Perindopril Erbumine) 2 MG TABLET 1 Tablet ORAL DAILY Qty = 30 Copies To: Antwon Diaz MD
--- NOTE | 2018-02-03 10:37 | Patient Discharge Instructions ---
Discharge Instructions General Discharge Information You were seen/treated for: Vertigo Gait instability Watch for these problems: Diziness, Headache, light headedness, chest pain, numbness, tingling and weakness. If you experience any of these symptoms place comfortably radial cardiac primary care physician. Special Instructions: Follow-up your primary care physician in one week. Please discuss the dose of perindopril with pcp if that needs to increase or decrease according to your BP on that visit. Diet Recommended Diet: Regular Activity Activity Self Limited: Yes Acute Coronary Syndrome Inclusion Criteria At DC or during hospital stay patient has or had the following: ACS DIAGNOSIS No Discharge Core Measures Meds if any: Prescribed or Continued at Discharge Meds if any: NOT Prescribed or Continued at Discharge Congestive Heart Failure Inclusion Criteria At DC or during hospital stay patient has or had the following: CHF DIAGNOSIS No Discharge Core Measures Meds if any: Prescribed or Continued at Discharge Meds if any: NOT Prescribed or Continued at Discharge Cerebrovascular accident Inclusion Criteria At DC or during hospital stay patient has or had the following: CVA/TIA Diagnosis No Discharge Core Measures Meds if any: Prescribed or Continued at Discharge Meds if any: NOT Prescribed or Continued at Discharge Venous thromboembolism Inclusion Criteria VTE Diagnosis No VTE Type NONE VTE Confirmed by (Test) NONE Discharge Core Measures - Per Current guidelines, there needs to be overlap - treatment for the first 5 days of Warfarin therapy. - If discharged on Warfarin prior to 5 days of - overlap therapy, the patient will need to be - assessed for post discharge needs including - *Post discharge parental anticoagulation - *Warfarin and/or parental anticoagulation education - *Follow up date to check INR post discharge At least 5 days overlap therapy as Inpatient No Meds if any: Prescribed or Continued at Discharge Note: Overlap Therapy is Warfarin and Anticoagulant Meds if any: NOT Prescribed or Continued at Discharge
[2018-02-03 14:27] VITALS: BP 136/56
--- NOTE | 2018-02-03 15:43 | Cons- Neurology ---
General Information and HPI Consulting Request Date of Consult: 02/03/18 Requested By: Edil Reaves MD Reason for Consult: Vertigo, questionable Parkinsons? 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 The other day he was walking with his walker when he suddenly stopped and stomped in place in a bizzare fashion. When asked what he was doing he told his daughter the room was spinning. Since arrival in the hospital he has been improving with the help of PT. Per the daughter he is still sharp (Australian speaking) and still very aware of the date. He can hold conversations that are relevant. He denies any urinary incontinence, and hyposmia, any tremor or any fall. She denies any freezing or festenation or falling backwards when walking. He does have severe glaucoma and is legally blind which challenges him. He had a stroke 5 years ago but has little residual. Allergies/Medications Allergies: Coded Allergies: No Known Allergies (02/01/18) Home Med List: Allopurinol 300 MG TABLET 1 TAB PO DAILY PRN GOUT (Reported) Brimonidine Tartrate/Timolol (Combigan Eye Drops) 0.2 %-0.5 % DROPS 1 DROP OPH BID EYE PROBLEMS (Reported) Clopidogrel Bisulfate (Clopidogrel) 75 MG TABLET 1 TAB PO DAILY BLOOD THINNER (Reported) Dorzolamide HCl/Timolol Maleat (Cosopt Eye Drops) 22.3 MG-6.8 MG/ML DROPS 1 GTT OPH BID GLAUCOMA (Reported) Perindopril Erbumine 4 MG TABLET 1 TAB PO DAILY HIGH BLOOD PRESSURE (Reported ) Travoprost (Travatan Z) 0.004 % DROPS 1 GTT OPH QPM GLAUCOMA (Reported) Current Medications: Current Medications Sig/Kit Start time Last Medication Dose Route Stop Time Status Admin Acetaminophen 650 MG Q6PRN PRN 02/01 1230 AC PO Clopidogrel Bisulfate 75 MG DAILY 02/03 1054 AC 02/03 PO 1113 Dorzolamide/Timolol 1 ML BID 02/01 1415 AC 02/03 OPH 0946 Enoxaparin Sodium 40 MG DAILY 02/02 1000 AC 02/03 SC 0945 Multivitamins 1 TAB DAILY 02/02 1000 AC 02/03 PO 0945 Polyethylene Glycol 17 GM DAILY NEEDED PRN 02/03 0930 AC 02/03 PO 1113 Travoprost 1 GTT QPM 02/01 2200 AC 02/01 OPH 2027 Review of Systems Review of Systems: As described in HPI. Has occasional numbing cool sensation occasionally over his left leg. 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 Home Smoking Status: Former Smoker (quit 40 years ago) ETOH Use: denies use Illicit Drug Use: denies illicit drug use Exam & Diagnostic Data Vital Signs and I&O Vital Signs Date Time Temp Pulse Resp B/P B/P Pulse O2 O2 Flow FiO2 Mean Ox Delivery Rate 02/03 1427 97.2 58 20 136/56 97 Room Air 02/03 0636 98.0 74 20 120/70 94 02/02 2351 97.7 52 16 112/50 97 Room Air Intake & Output 02/03 1600 02/03 0800 02/03 0000 Intake Total 650 Output Total 800 550 100 Balance -150 -550 -100 Intake, IV 0 Intake, Oral 650 Number 0 Bowel Movements Output, Urine 800 550 100 Patient 159 lb Weight Physical Exam: Alert and oriented. Speaks in Thai coherently but limited. Speaks Australian fluently. No hypophonia. EOMI, MARLENE, face symmetric . Strength intact throughout. Sensory normal. Mild coghwheel of right arm. Gait deferred. Last 48 Hours of Lab Results: Laboratory Tests 02/03 02/02 02/02 0615 1355 0620 Chemistry Sodium (137 - 145 mmol/L) 143 144 Potassium (3.5 - 5.1 mmol/L) 4.3 3.4 L Chloride (98 - 107 mmol/L) 107 115 H Carbon Dioxide (22 - 30 mmol/L) 27 23 Anion Gap (5 - 16) 9 6 BUN (9 - 20 mg/dL) 15 12 Creatinine (0.7 - 1.2 mg/dL) 0.7 0.5 L Estimated GFR (>60 ml/min) > 60 > 60 BUN/Creatinine Ratio (7 - 25 %) 21.4 24.0 Prot Electrophoresis Cancelled Total Protein (PEP) Cancelled Albumin % (PEP) Cancelled Gtytd-7-Ttdiupoaw Cancelled Gsbcf-2-Budvhipta Cancelled Abnx-2-Cmdsxmyc Cancelled Aaeo-5-Zaltntip Cancelled Gamma Globulins Cancelled Abnorm Protein Band 1 Cancelled Abnorm Protein Band 2 Cancelled Abnorm Protein Band 3 Cancelled Triglycerides (<150 mg/dL) 59 Cholesterol (< 200 MG/DL) 108 LDL Cholesterol, Calc (65 - 129 mg/dL) 61 L HDL Cholesterol (40 - 60 mg/dL) 36 L Cholesterol/HDL Ratio (0.00 - 4.88 %) 3 25-OH Vitamin D Total (30 - 100 ng/ml) 12.8 L TSH (0.270 - 4.200 uIU/mL) 2.880 Hematology CBC w Diff NO MAN DIFF REQ WBC (4.8 - 10.8 /CUMM) 5.3 RBC (4.70 - 6.10 /CUMM) 3.21 L Hgb (14.0 - 18.0 G/DL) 10.0 L Hct (42 - 52 %) 30.1 L MCV (80.0 - 94.0 FL) 93.7 MCH (27.0 - 31.0 PG) 31.3 H MCHC (33.0 - 37.0 G/DL) 33.4 RDW (11.5 - 14.5 %) 13.3 Plt Count (130 - 400 /CUMM) 170 MPV (7.4 - 10.4 FL) 8.1 Gran % (42.2 - 75.2 %) 66.9 Lymphocytes % (20.5 - 51.1 %) 15.9 L Monocytes % (1.7 - 9.3 %) 12.5 H Eosinophils % (0 - 5 %) 4.1 Basophils % (0.0 - 2.0 %) 0.6 Absolute Granulocytes (1.4 - 6.5 /CUMM) 3.6 Absolute Lymphocytes (1.2 - 3.4 /CUMM) 0.8 L Absolute Monocytes (0.10 - 0.60 /CUMM) 0.7 H Absolute Eosinophils (0.0 - 0.7 /CUMM) 0.2 Absolute Basophils (0.0 - 0.2 /CUMM) 0 Imaging/Other Studies: CLINICAL INFORMATION: 87-year-old man with dizziness and confusion. COMPARISON: head CT TECHNIQUE: MRI of the brain without contrast was obtained using routine sequences. FINDINGS: The ventricles and sulcal spaces are diffusely prominent due to chronic volume loss. No focal reduced diffusion is seen to suggest acute or subacute cerebral ischemia. No intracranial mass, intracerebral edema, intra-axial blood products, midline shift, or extra-axial collection is visualized. Normal arterial and venous vascular flow voids are present. There is mild mucosal thickening in the ethmoid air cells. IMPRESSION: No imaging evidence of acute cerebral ischemia or hemorrhage. Chronic volume loss. NCHCT>> FINDINGS: There is no evidence of acute intra-axial or extra-axial hemorrhage. No acute mass effect or midline shift. Prominence of the ventricles and sulci compatible with age related involutional changes. Focal hypodensity right inferior basal ganglia may represent age indeterminate lacunar infarct. No acute loss of ibarra-white differentiation. Mild periventricular white matter low-attenuation compatible with small vessel ischemic disease. The mastoid air cells and visualized portions of the paranasal sinuses are well aerated. IMPRESSION: No acute intracranial pathology. Probable old lacunar infarct right inferior basal ganglia. Small vessel ischemic disease. Assessment/Plan Assessment: 87 year old [place] man presenting with vertigo. No clear sign of Parkinson's disease or a movement disorder. His main complaint was vertigo, which is not a symptom of Parkinson's. His cognitive ability is age appropriate. Recommendations: No further recommendations. If develops more concretet PD symptoms can be seen as an outpt. Consult Acknowledgment - Thank you for your consult request.
[2018-02-03 22:04] VITALS: BP 130/60
[2018-02-04 07:02] VITALS: BP 130/50
--- NOTE | 2018-02-04 07:10 | PN- Housestaff ---
Subjective Follow-up For: Gait instability Vertigo Tele-Events Since Last Visit: Off tele Subjective: Patient remained afebrile overnight. Seen and examined this morning. Patient slept well last night. He denied any chest pain, short of breath, nausea, vomiting, chills, fever, abdominal pain and dysuria. Patient has language barrier he can't speak Vietnamese well. Patient was seen by neurology for evaluation of Parkinson disease. Recommended outpatient work up for parkinson in future, didn't find anything related to parkinson's this time. Patient is off telemetry monitoring and can be transferred to [facility]. Review of Systems Constitutional: Reports: see HPI. Objective Last 24 Hrs of Vital Signs/I&O Vital Signs Date Time Temp Pulse Resp B/P B/P Pulse O2 O2 Flow FiO2 Mean Ox Delivery Rate 02/04 0702 98.0 59 20 130/50 98 Room Air 02/03 2204 97.0 58 20 130/60 98 Room Air 02/03 1427 97.2 58 20 136/56 97 Room Air Intake & Output 02/04 0800 02/04 0000 02/03 1600 Intake Total 650 Output Total 200 200 800 Balance -200 -200 -150 Intake, IV 0 Intake, Oral 650 Number 0 Bowel Movements Output, Urine 200 200 800 Patient 153 lb Weight Weight Bed scale Measurement Method Physical Exam General Appearance: Alert, Oriented X3, Cooperative Skin: No Rashes Skin Temp/Moisture Exam: Warm/Dry Sepsis Skin Exam (color): Normal for Ethnicity HEENT: Atraumatic, PERRLA, EOMI Neck: Supple Cardiovascular: Normal S1, Normal S2 Lungs: Clear to Auscultation Abdomen: Soft, No Tenderness Neurological: Normal Speech, Normal Tone Extremities: No Edema Assessment/Plan Assessment: 87M PMH coronary artery disease, gout, glaucoma, hypertension, TIA about 5 years ago , vitamin B12 deficiency admitted with dizziness, headache, loss of balance, and confusion for one day. No family was at bedside this morning. Keeping the patient on telemetry floor for the following problems: Vertigo: -Possibly peripheral vertigo that patient experienced in the past. 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 -PT evaluation -Can be trasfered to [facility] floor. Gait instability: -We will get PT evaluation -Neurological evaluation for parkinsonism was done yesterday, didn't find any symptoms of parkinson. History Of hypertension: -Prindopril will be continued over discharge. Perindopril dose was decreased from 4 to 2 mg as it can drop his BP. INSTRUCTED TO FOLLOW PCP for further instructions -His blood pressure is within normal limits. In hospital he was given lisinopril one dose. Coronary artery disease and TIA: -Continue clopidogrel. DVT prophylaxis: Mechanical and subcutaneous Lovenox CODE STATUS: Full code Problem List: 1. Multifactorial gait disorder 2. Dizziness Pain Ratin Pain Location: none Pain Goal: Remain pain free Pain Plan: pain pathway Tomorrow's Labs & Rationales: none
--- NOTE | 2018-02-04 08:19 | Discharge Summary ---
Visit Information Visit Dates Admission Date: 02/01/18 Discharge Date: 02/04/18 Hospital Course Course Attending Physician: Edil Reaves MD Primary Care Physician: Joe SPRINGER,Antwon [facility] Course: Mr. Canchola is an 87 year old male with past medical history significant for CAD, gout, glaucoma, hypertension, TIA without residual focal neurological weakness, vitamin B12 deficiency who was brought in to ED by his daughter for chief complaint of acute onset dizziness for 1 day. On admission patient had normal vital signs except for blood pressure 187/78, patient was alert oriented anemia H&H 12.7/39.2. CT head was obtained negative for any acute intra- cranial pathology however had old lacunar infarction in right inferior basal ganglia, small vessel ischemic disease. MRI brain was obtained as well that revealed chronic volume loss. Patient was admitted to telemetry floor for continuous cardiac telemetry monitoring, no arrhythmia was detected, Perindopril was held on admission, orthostatic is negative, patient continued to have blood pressure of maximum systolic 130 during hospitalization. Patient will be discharged on peridpril 2 mg dailt instead of 4 mg daily to follow up by his primary care physician for dose adjusment. Neurology consultation was obtained to rule out any new onset parkinsonism, evaluation revealed age appropriate cognitive ability with no symptoms or signs of early parkinsonism. Patient was discharged to [facility] for physical therapy. Allergies: Coded Allergies: No Known Allergies (02/01/18) Disposition Summary Disposition Principal Diagnosis: Dizziness Additional Diagnosis: Hypertension Discharge Disposition: SNF Discharge Instructions General Discharge Information Code Status: Full Code Patient's Diet: Heart healthy Patient's Activity: as tolerated Follow-Up Instructions/Appts: -Please follow-up with your primary care physician within 1 week after discharge -Please follow up with your PCP for blood pressure medication adjustment Medications at Discharge Discharge Medications: Stop taking the following medications: [COVERSYL] 5 MG TAB ORAL DAILY Continue taking these medications: Clopidogrel Bisulfate (Clopidogrel) 75 MG TABLET 1 Tablet ORAL DAILY Qty = 30 Allopurinol (Allopurinol) 300 MG TABLET 1 Tablet ORAL DAILY as needed for GOUT Qty = 30 Dorzolamide HCl/Timolol Maleat (Cosopt Eye Drops) 22.3 MG-6.8 MG/ML DROPS 1 Drop In the eye TWICE DAILY Brimonidine Tartrate/Timolol (Combigan Eye Drops) 0.2 %-0.5 % DROPS 1 DROP In the eye TWICE DAILY Travoprost (Travatan Z) 0.004 % DROPS 1 Drop In the eye Every night The following medications have been changed: Old: Perindopril Erbumine (Perindopril Erbumine) 4 MG TABLET 1 Tablet ORAL DAILY Qty = 30 New: Perindopril Erbumine (Perindopril Erbumine) 2 MG TABLET 1 Tablet ORAL DAILY Qty = 30 Copies To: Antwon Diaz MD
[2018-02-04] MEDS ORDERED: PERINDOPRIL ERBU2 MG PO (09:04)
[2018-02-04 14:18] VITALS: BP 128/66
== END 2018-02-04 16:15 | DRG 149 ==
LOC: ERH 08:57 → ERHI 10:51 → 1NO 10:51 → ENRESERV 12:26 → EDBEDREQ 12:39 → ENRESERV 12:45 → ENTRNSPT 13:14 → EDTRNSPTSTS 13:35 → EDTRNSPT 13:35 → 1NO 13:44 → CMPTRNSPT 13:56 → 1NO 02-02 07:33 → ENPENDDIS 02-04 15:57 → 1NO 02-04 16:15
PROVIDERS: Emergency Medicine; Student in an Organized Health Care Education/Training Program
DX: R42 Dizziness and giddiness (principal); Q60.0 Renal agenesis, unilateral; D53.9 Nutritional anemia, unspecified; R26.89 Other abnormalities of gait and mobility; I44.7 Left bundle-branch block, unspecified; H40.9 Unspecified glaucoma; I25.10 Atherosclerotic heart disease of native coronary artery without angina pectoris; M10.9 Gout, unspecified; I10 Essential (primary) hypertension; I44.0 Atrioventricular block, first degree; E53.8 Deficiency of other specified B group vitamins; Z87.891 Personal history of nicotine dependence; Z86.73 Personal history of transient ischemic attack (TIA), and cerebral infarction without residual deficits; Z87.820 Personal history of traumatic brain injury
CPT/HCPCS: 1NP; 70551; 83921; 36592; 71045; 81001; 82436; 84165; 84166; 93005; 93010; 93306; 93925; 97110-GO; 97112-GO; 97116-GO; 97161-GP; 97530-GO; J1650